=== PATIENT | male | born 1965 | race Caucasian/White ===

== ENCOUNTER 2022-08-20 09:20 | Emergency (ER) | payer BC, MEDICARE ==
[~2022-08-20] VITALS: Ht 188 cm; Wt 136.0 kg
[2022-08-20 09:53] VITALS: BP 166/91
[2022-08-20] MEDS ORDERED: HYDR-3972 PO (10:51)
== END 2022-08-20 11:18 | disposition home or self-care (01) ==
LOC: ER 09:21
DX: R07.81 Pleurodynia (principal); X58.XXXA Exposure to other specified factors, initial encounter; Y93.89 Activity, other specified; Y92.89 Other specified places as the place of occurrence of the external cause; Y99.8 Other external cause status
CPT/HCPCS: 71045; 99283

== ENCOUNTER 2022-08-22 11:47 | Emergency (ER) | payer BC ==
[~2022-08-22] VITALS: Ht 188 cm; Wt 136.4 kg
[~2022-08-22 11:47] MED LIST: HYDR-3972 PO
[2022-08-22 11:57] VITALS: BP 164/94
== END 2022-08-22 13:54 | disposition home or self-care (01) ==
LOC: ER 11:47
DX: R07.81 Pleurodynia (principal)
CPT/HCPCS: 71046; 99283

== ENCOUNTER 2023-02-17 13:26 | Emergency (ER) | payer BC ==
[~2023-02-17] VITALS: Ht 188 cm; Wt 134.1 kg
[2023-02-17 13:33] VITALS: TEMP 98.9
[2023-02-17 14:04] LABS: BASOPHILS % (AUTO) 0.2 % (0-1); EOSINOPHILS # (AUTO) 0.1 X10'3 (0-0.9); EOSINOPHILS % (AUTO) 0.4 % (0-6); HEMATOCRIT 45.7 % (42.0-52.0); LYMPHOCYTES # (AUTO) 1.6 X10'3 (1.1-4.8); LYMPHOCYTES % (AUTO) 10.5 % (21-51); MEAN CORPUSCULAR HEMOGLOBIN 28.8 PG (27.0-31.0); MEAN CORPUSCULAR HGB CONC 32.8 g/dL (33.0-36.5); MEAN CORPUSCULAR VOLUME 87.5 FL (78-98); MONOCYTES # (AUTO) 1.3 X10'3 (0-0.9); MONOCYTES % (AUTO) 8.7 % (2-12); NEUTROPHILS # (AUTO) 12.4 X10'3 (1.8-7.7); NEUTROPHILS % (AUTO) 80.2 % (42-75); PLATELET COUNT 199 X10'3 (140-440); RED BLOOD COUNT 5.22 X10'6 (4.70-6.10); WHITE BLOOD COUNT 15.4 X10'3 (4.5-11.0)
[2023-02-17 14:08] LABS: ALANINE AMINOTRANSFERASE 26 U/L (12-78); ALBUMIN 4.5 G/DL (3.4-5.0); ALBUMIN/GLOBULIN RATIO 1.2 (1.1-1.5); ALKALINE PHOSPHATASE 78 IU/L (46-116); ANION GAP 9 (8-16); ASPARTATE AMINO TRANSFERASE 19 U/L (10-37); BLOOD UREA NITROGEN 18 MG/DL (7-18); BUN/CREATININE RATIO 15.5 (10.0-20.0); CHLORIDE 101 MMOL/L (99-107); CREATININE 1.16 MG/DL (0.60-1.10); GLUCOSE 138 MG/DL (70-104); POTASSIUM 4.3 MMOL/L (3.5-5.1); SODIUM 139 MMOL/L (135-145); TOTAL CARBON DIOXIDE 28.7 MMOL/L (24-32); TOTAL PROTEIN 8.3 G/DL (6.4-8.2); eCRCL 82 ML/MIN; eGFR 65 ML/MIN
[2023-02-17 14:15] LABS: PRO BRAIN NATRIURETIC PEPTIDE 89 PG/ML (0-125)
[2023-02-17] MEDS ORDERED: meperidine/PF 50mg/ml syringe IV ONE (20:05)
[2023-02-17] MEDS ORDERED: piperacillin/tazo 3.375gm/50ml 50 ML IV ONE (20:05)
[2023-02-17] MEDS ORDERED: normal saline 1000ML IV soln IV ONE (20:05)
[2023-02-17 20:43] LABS: C-REACTIVE PROTEIN 4.5 MG/DL (0.0-0.5); MAGNESIUM 1.9 MG/DL (1.5-2.4)
[2023-02-17] MEDS ORDERED: AZIT250T PO (21:32)
[2023-02-17] MEDS ORDERED: NAPR-56 PO (21:33)
[2023-02-17] MEDS ORDERED: ketorolac tromethamine 15mg/ml inj. IV ONE (21:35)
[2023-02-17 21:45] VITALS: BP 141/86; PULSE 90; O2SAT 97
[2023-02-17 21:53] VITALS: RESP 19
== END 2023-02-17 22:10 | disposition home or self-care (01) ==
LOC: ER 13:26
DX: J18.9 Pneumonia, unspecified organism (principal); Z20.822 Contact with and (suspected) exposure to COVID-19
CPT/HCPCS: 36415; 71045; 71250; 74176; 80053; 83605; 83735; 83880; 84145; 84484; 85025; 86140; 87040; 87811; 93005; 96365; 96375; 99285; J1885; J2175; J2543; J7030

== ENCOUNTER 2023-04-04 02:45 | Inpatient (IN) | payer BC ==
[2023-04-04] VITALS (15 sets, daily range): BP systolic 111–164; BP diastolic 69–103; PULSE 89–110; RESP 16–32; TEMP 97.4–98.5; O2SAT 94–97
[~2023-04-04] VITALS: Ht 190.5 cm; Wt 138.0 kg
[~2023-04-04 02:45] MED LIST changes: -HYDR-3972 PO; +MULT-955 PO; +NAPR-996 PO; +OMEP20TA43 PO
[2023-04-04] MEDS ORDERED: diltiazem 5mg/ml 5ml inj. IV ONE (03:15)
[2023-04-04] MEDS ORDERED: aspirin 325mg tablet PO ONE (03:15)
[2023-04-04] MEDS ORDERED: normal saline 500ml IV soln 500 ML IV ONE (03:15)
[2023-04-04] MEDS ORDERED: nitroGLYCERIN 1gm ointment UD TP ONE (03:15)
[2023-04-04 03:42] LABS: APTT 27 SECONDS (22-32); INR 1.2 INR; PROTHROMBIN TIME 12.4 SECONDS (9.0-12.0)
[2023-04-04 03:44] LABS: BASOPHILS % (AUTO) 0.4 % (0-1); EOSINOPHILS # (AUTO) 0.2 X10'3 (0-0.9); EOSINOPHILS % (AUTO) 1.6 % (0-6); HEMATOCRIT 42.1 % (42.0-52.0); LYMPHOCYTES # (AUTO) 1.4 X10'3 (1.1-4.8); LYMPHOCYTES % (AUTO) 13.6 % (21-51); MEAN CORPUSCULAR HEMOGLOBIN 28.6 PG (27.0-31.0); MEAN CORPUSCULAR HGB CONC 33.1 g/dL (33.0-36.5); MEAN CORPUSCULAR VOLUME 86.3 FL (78-98); MEAN PLATELET VOLUME 10.6 FL (7.4-10.4); MONOCYTES # (AUTO) 0.7 X10'3 (0-0.9); MONOCYTES % (AUTO) 6.8 % (2-12); NEUTROPHILS % (AUTO) 77.6 % (42-75); PLATELET COUNT 104 X10'3 (140-440); RED BLOOD COUNT 4.88 X10'6 (4.70-6.10); RED CELL DISTRIBUTION WIDTH 14.4 % (11.5-14.5); WHITE BLOOD COUNT 10.3 X10'3 (4.5-11.0)
[2023-04-04 03:56] LABS: ALANINE AMINOTRANSFERASE 25 U/L (12-78); ALBUMIN 3.5 G/DL (3.4-5.0); ALBUMIN/GLOBULIN RATIO 0.8 (1.1-1.5); ALKALINE PHOSPHATASE 103 IU/L (46-116); ANION GAP 9 (8-16); ASPARTATE AMINO TRANSFERASE 30 U/L (10-37); BILIRUBIN,TOTAL 0.9 MG/DL (0.1-1.0); BLOOD UREA NITROGEN 16 MG/DL (7-18); BUN/CREATININE RATIO 12.4 (10.0-20.0); CALCIUM 9.2 MG/DL (8.5-10.1); CHLORIDE 103 MMOL/L (99-107); CREATININE 1.29 MG/DL (0.60-1.10); GLUCOSE 115 MG/DL (70-104); SODIUM 136 MMOL/L (135-145); TOTAL CARBON DIOXIDE 23.7 MMOL/L (24-32); TOTAL PROTEIN 7.7 G/DL (6.4-8.2); eCRCL 76 ML/MIN; eGFR 57 ML/MIN
[2023-04-04 03:58] LABS: PRO BRAIN NATRIURETIC PEPTIDE 2133 PG/ML (0-125)
[2023-04-04] MEDS ORDERED: furosemide 10 MG/1 ML 10ml inj IV ONE (04:40)
--- NOTE | 2023-04-04 05:06 | NUR ---
PER MD ERAZO; NON ADMIN LASIX, D/C FLUIDS
[2023-04-04] MEDS ORDERED: magnesium Cl slow-release 64mg tablet PO PRN (05:10)
[2023-04-04] MEDS ORDERED: ondansetron/PF 4mg/2ml inj IV PRN (05:10)
[2023-04-04] MEDS ORDERED: potassium Cl 40MEQ/1/2NS 520ml 520 ML IV PRN (05:10)
[2023-04-04] MEDS ORDERED: acetaminophen 325mg tablet PO PRN ×2 (05:10→13:55)
[2023-04-04] MEDS ORDERED: magnesium 4gm in 100ml NS 100 ML IV PRN (05:10)
[2023-04-04] MEDS ORDERED: magnesium 2GM in 50ml NS 50 ML IV PRN (05:10)
[2023-04-04] MEDS ORDERED: potassium Cl 20 mEq SR tablet PO PRN ×2 (05:10)
[2023-04-04] MEDS ORDERED: mag hydrox/Alum hydrox/simeth 30ml oral suspension PO PRN (05:10)
[2023-04-04] MEDS ORDERED: magnesium hydroxide 30ml (MOM) UD suspension PO PRN (05:10)
[2023-04-04] MEDS ORDERED: metoprolol tartrate 1mg/ml inj IV ONE (05:15)
[2023-04-04] MEDS ORDERED: metoprolol tartrate 50mg tablet PO ONE (05:15)
[2023-04-04] MEDS ORDERED: diltiazem-NS 100mg/100ml 100 ML IV SCH (05:20)
--- NOTE | 2023-04-04 06:45 | NUR ---
Vascular US at bedside
[2023-04-04] MEDS: diltiazem-NS 100mg/100ml 100 ML IV SCH ×2 (07:18→17:28)
--- NOTE | 2023-04-04 07:32 | NUR ---
PAGED DR. PRITCHETT. PT REQUESTING PAIN MEDS. AWARE AND AWAITING ORDERS.
[2023-04-04] MEDS: K and/or MAG REPLACEMENT MC SCH ×2 (08:00→19:48)
[2023-04-04] MEDS: docusate sod 100mg capsule PO SCH ×2 (08:00→19:48)
--- NOTE | 2023-04-04 08:20 | NUR ---
PAGED DR. PRITCHETT X2. PT REQUESTING PAIN MEDS.
[2023-04-04 08:29] LABS: URINE AMPHETAMINE SCREEN NEGATIVE (Neg); URINE BARBITUATE SCREEN NEGATIVE (Neg); URINE BENZODIAZEPINES SCREEN NEGATIVE (Neg); URINE CANNABINOID SCREEN NEGATIVE (Neg); URINE COCAINE SCREEN NEGATIVE (Neg); URINE METHADONE SCREEN NEGATIVE (Neg); URINE OPIATE SCREEN NEGATIVE (Neg); URINE PHENCYCLIDINE SCREEN NEGATIVE (Neg)
[2023-04-04 08:35] LABS: FREE T4 (FREE THYROXINE) 1.2 NG/DL (0.73-1.40); MAGNESIUM 2.2 MG/DL (1.5-2.4); POTASSIUM 4.4 MMOL/L (3.5-5.1); THYROID STIMULATING HORMONE 3.33 ulU/ml (0.34-4.50)
[2023-04-04] MEDS ORDERED: LOSA25TA41 PO (09:23)
[2023-04-04] MEDS ORDERED: HYDR-3965 PO (09:23)
--- NOTE | 2023-04-04 09:28 | NUR ---
DR. PRITCHETT PAGED X3. PT REQUESTING PAIN MEDICATION. MED REC COMPLETED. NOTIFIED.
[2023-04-04] MEDS: heparin, porcine 5000 units/ml vial SQ SCH ×2 (09:33→19:48)
[2023-04-04] MEDS ORDERED: HYDROcodone/acetaminophen 5mg/325mg tablet PO PRN (17:40)
--- NOTE | 2023-04-04 18:25 | NUR ---
Problems reprioritized. Patient report given, questions answered & plan of care reviewed with Riana. Addendum: 04/04/23 at 1827 by Issa Malone RN Amended: Links added.
[2023-04-05] VITALS (9 sets, daily range): BP systolic 143–161; BP diastolic 88–109; PULSE 73–113; RESP 16–24; TEMP 97.4–98.1; O2SAT 91–95
[2023-04-05] MEDS: diltiazem-NS 100mg/100ml 100 ML IV SCH (04:45)
[2023-04-05] MEDS: K and/or MAG REPLACEMENT MC SCH (08:00)
[2023-04-05] MEDS: docusate sod 100mg capsule PO SCH (08:00)
[2023-04-05] MEDS ORDERED: losartan 25mg tablet PO SCH (08:00)
[2023-04-05] MEDS ORDERED: furosemide 20 MG/2 ML vial IV SCH (08:15)
[2023-04-05 08:53] LABS: BASOPHILS % (AUTO) 0.4 % (0-1); EOSINOPHILS # (AUTO) 0.1 X10'3 (0-0.9); EOSINOPHILS % (AUTO) 0.9 % (0-6); HEMATOCRIT 40.3 % (42.0-52.0); HEMOGLOBIN 13.4 g/dl (14.0-17.9); LYMPHOCYTES # (AUTO) 1.1 X10'3 (1.1-4.8); LYMPHOCYTES % (AUTO) 11.9 % (21-51); MEAN CORPUSCULAR HEMOGLOBIN 28.6 PG (27.0-31.0); MEAN CORPUSCULAR HGB CONC 33.2 g/dL (33.0-36.5); MEAN CORPUSCULAR VOLUME 86.3 FL (78-98); MEAN PLATELET VOLUME 10.7 FL (7.4-10.4); MONOCYTES # (AUTO) 0.7 X10'3 (0-0.9); NEUTROPHILS # (AUTO) 7.1 X10'3 (1.8-7.7); NEUTROPHILS % (AUTO) 78.8 % (42-75); PLATELET COUNT 84 X10'3 (140-440); RED BLOOD COUNT 4.67 X10'6 (4.70-6.10); RED CELL DISTRIBUTION WIDTH 14.4 % (11.5-14.5)
[2023-04-05] MEDS: heparin, porcine 5000 units/ml vial SQ SCH (08:57)
[2023-04-05 09:30] LABS: ALANINE AMINOTRANSFERASE 25 U/L (12-78); ALBUMIN 3.5 G/DL (3.4-5.0); ALBUMIN/GLOBULIN RATIO 0.9 (1.1-1.5); ALKALINE PHOSPHATASE 100 IU/L (46-116); ANION GAP 11 (8-16); ASPARTATE AMINO TRANSFERASE 21 U/L (10-37); BILIRUBIN,TOTAL 1.8 MG/DL (0.1-1.0); BLOOD UREA NITROGEN 14 MG/DL (7-18); BUN/CREATININE RATIO 13.1 (10.0-20.0); CALCIUM 9.4 MG/DL (8.5-10.1); CHLORIDE 102 MMOL/L (99-107); CHOL/HDL RATIO 3.7 (0.00-4.99); CHOLESTEROL 138 MG/DL (0-200); CREATININE 1.07 MG/DL (0.60-1.10); GLUCOSE 105 MG/DL (70-104); HDL CHOLESTEROL 37 MG/DL (35-60); LDL CHOLESTEROL 87 MG/DL (50-100); MAGNESIUM 2.1 MG/DL (1.5-2.4); POTASSIUM 4.1 MMOL/L (3.5-5.1); SODIUM 136 MMOL/L (135-145); TOTAL CARBON DIOXIDE 23.1 MMOL/L (24-32); TOTAL PROTEIN 7.6 G/DL (6.4-8.2); TRIGLYCERIDES 53 MG/DL (20-135); eCRCL 91 ML/MIN; eGFR 71 ML/MIN
[2023-04-05] MEDS ORDERED: FURO-149 PO (10:26)
[2023-04-05] MEDS ORDERED: APIX5TAB3 PO (15:28)
--- NOTE | 2023-04-05 15:53 | NUR ---
Pt D/C per hospitalist. PIV removed, cannula intact. Tele discontinued. All belongings taken home by patient. Reviewed discharge instructions with patient and spouse, all questions and concerns addressed. RX e-scribed to home pharmacy. Pt wheeled down to lobby by RN and driven home by spouse. Pt stable and appropriate for discharge.
== END 2023-04-05 15:53 | disposition home or self-care (01) | DRG 309 ==
LOC: ER 02:45 → ED HOLD 05:12 → EDBEDREQ 09:54 → PCU 3S 11:18
PROVIDERS: ADMIT Internal Medicine; ATTEND Family Medicine
DX: I48.91 Unspecified atrial fibrillation (principal); I13.0 Hypertensive heart and chronic kidney disease with heart failure and stage 1 through stage 4 chronic kidney disease, or unspecified chronic kidney disease; I16.0 Hypertensive urgency; I42.9 Cardiomyopathy, unspecified; G47.00 Insomnia, unspecified; G47.33 Obstructive sleep apnea (adult) (pediatric); N18.30 Chronic kidney disease, stage 3 unspecified; K44.9 Diaphragmatic hernia without obstruction or gangrene; I27.20 Pulmonary hypertension, unspecified; I50.9 Heart failure, unspecified; I10 Essential (primary) hypertension; Z79.899 Other long term (current) drug therapy
CPT/HCPCS: 36415; 71045; 80053; 80061; 80305; 83036; 83735; 83880; 84132; 84439; 84443; 84484; 85025; 85610; 85730; 87081; 93306; 93975; 99285; G0378; J1644; J1940; J3490; J7030; J7040